=== PATIENT | female | born 1965 | race Two or more races ===

== ENCOUNTER 2021-10-21 16:47 | Emergency (ER) | payer OTHER ==
[~2021-10-21] VITALS: Ht 160 cm; Wt 79.4 kg
[~2021-10-21 16:47] MED LIST: PERCOCET 5-3251 EACH PO; SKELAGESIC PO; TAMS0.4C PO
== END 2021-10-22 00:17 ==
LOC: ER 16:47
DX: N20.9 Urinary calculus, unspecified (principal); N20.1 Calculus of ureter; K44.9 Diaphragmatic hernia without obstruction or gangrene